=== PATIENT | female | born 1985 | race Two or more races ===

== ENCOUNTER 2020-01-04 18:45 | Emergency (ER) | payer MEDICAID ==
[~2020-01-04] VITALS: Ht 167.6 cm; Wt 91.8 kg
[2020-01-04 19:04] VITALS: BP 113/69
== END 2020-01-04 21:00 | disposition home or self-care (01) ==
LOC: ER 18:45
DX: Z11.59 Encounter for screening for other viral diseases (principal)
CPT/HCPCS: 99283; C9803; U0003; 99281